=== PATIENT | male | born 1965 | race Caucasian/White ===

== ENCOUNTER 2020-10-27 07:58 | Emergency (ER) | payer OTHER, SELFPAY ==
[2020-10-27 08:15] VITALS: BP 152/88; PULSE 105; RESP 22; TEMP 36.7; O2SAT 98
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
[2020-10-27] MEDS: HYDROMORPHONE 1 MG INJ IV ×2 (08:54→10:42)
[2020-10-27 09:20] LABS: Add Manual Diff / Slide Review NO; Basophils Absolute Auto 100 /uL (0-100); Basophils Percent Auto 0.6 % (0-2); Eosinophils Absolute Auto 200 /uL (0-450); Eosinophils Percent Auto 1.1 % (2-4); Hematocrit 28.7 % (41-53); Hemoglobin 9.4 g/dL (13.5-17.5); Lymphocytes Absolute Auto 1700 /uL (1100-4500); Lymphocytes Percent Auto 10.5 % (25-40); Mean Corpuscular HGB Conc 32.7 % (30-36); Mean Corpuscular Hemoglobin 30.7 PG (26-34); Mean Corpuscular Volume 94.2 fL (80-100); Monocytes Absolute Auto 900 /uL (0-900); Monocytes Percent Auto 5.7 % (3-14); Neutrophils Absolute Auto 13500 /uL (1500-7000); Neutrophils Percent Auto 82.1 % (50-75); Platelet Count 547 X10^3/uL (150-400); Red Blood Cell Count 3.04 X10^6/uL (4.5-5.9); White Blood Cell Count 16.4 X10^3/uL (4.5-11.0)
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
[2020-10-27 09:29] LABS: Alanine Aminotransferase 24 IU/L (<50); Albumin 3.8 g/dL (3.5-5.0); Albumin Globulin Ratio 1.1 (1.0-2.8); Alkaline Phosphatase 132 U/L (38-126); Aspartate Aminotransferase 36 IU/L (17-59); BUN Creatinine Ratio 11.4 (6-22); Bilirubin Total 0.7 mg/dL (0.2-1.3); Blood Urea Nitrogen 8 mg/dL (9-20); Carbon Dioxide 29 mmol/L (22-32); Chloride 98 mmol/L (98-107); Estimated Glomerular Filt Rate > 60.0 mL/min (>60); Globulin 3.4 g/dL (1.7-4.1); Glucose 124 mg/dL (70-100); HEMOLYSIS < 15 (0-50); Lactate (Lactic Acid) 1.4 mmol/L (0.7-2.1); Potassium 4.4 mmol/L (3.4-5.1); Sodium 134 mmol/L (137-145); Total Protein 7.2 g/dL (6.3-8.2)
[2020-10-27 09:46] LABS: Procalcitonin 0.06 ng/mL (<0.5)
[2020-10-27] MEDS: KETOROLAC 30 MG/ML VIAL IV (10:41)
[2020-10-27 11:29] VITALS: BP 144/77; PULSE 88; RESP 18; O2SAT 97
--- NOTE | 2020-10-27 11:32 | PC.NURSE ---
abd pad and kerlex applied over surgical inscsion to collect drainage. Pateint educated on monitoring output by the size of the stain on the ABD pad. Patient verbalized understanding.
== END 2020-10-27 11:30 | disposition home or self-care (01) ==
PROVIDERS: Emergency Provider Emergency Medicine; PCP Physician Assistant
DX: T81.49XA Infection following a procedure, other surgical site, initial encounter (principal)
CPT/HCPCS: 36415; 80053; 83605; 84145; 85025; 87040; 96374; 96375; 96376; 99284; J1170; J1885